=== PATIENT | female | born 1945 | race American Indian/Alaskan Native ===

== ENCOUNTER 2016-12-02 12:29 | Outpatient (CLI) | payer MEDICARE ==
[2016-12-02 13:13] LABS: Bilirubin,Urine NEG (Negative); Blood,Urine NEG (Negative); Ketones,Urine NEG (Negative); Leukocyte Esterase,Urine NEG (Negative); Mucus,Urine FEW /HPF; Nitrite,Urine NEG (Negative); RBC,Urine < 1.0 /HPF (0.0-6.0)
[2016-12-02 13:14] LABS: Alanine Aminotransferase 33 units/L (7-56); Albumin 3.8 g/dL (3.9-5); Albumin/Globulin Ratio 1.1 %; Alkaline Phosphatase 332 units/L (35-129); Anion Gap 16 mmol/L; BUN/Creatinine Ratio 24.44; Bilirubin,Total 1.8 mg/dL (0.1-1.2); Blood Urea Nitrogen 22 mg/dL (7-17); Calcium 8.9 mg/dL (8.4-10.2); Carbon Dioxide 31 mmol/L (22-30); Chloride 99.4 mmol/L (98-107); Glucose 120 mg/dL (65-100); Potassium 3.1 mmol/L (3.6-5.0); Sodium 143 mmol/L (137-145); Total Protein 7.4 g/dL (6.3-8.2)
== END 2016-12-02 12:30 | disposition home or self-care (01) ==
LOC: LAB 12:29
PROVIDERS: ATTEND Internal Medicine
DX: I10 Essential (primary) hypertension (principal); Z79.899 Other long term (current) drug therapy
CPT/HCPCS: 36415; 80053; 81001

== ENCOUNTER 2017-01-18 09:26 | Inpatient (IN) | payer MEDICARE ==
[2017-01-18] MEDS ORDERED: DULCOLAX PR PRN (10:28)
[2017-01-18] MEDS ORDERED: ZOFRAN IV PRN (10:28)
[2017-01-18] MEDS ORDERED: MILK OF MAGNESIA PO PRN (10:28)
--- NOTE | 2017-01-18 10:39 | History and Physical Report ---
History of Present Illness Date of examination: 01/18/17 History of present illness: H&P obtained from the office. Medications and Allergies Allergies Allergy/AdvReac Type Severity Reaction Status Date / Time amlodipine besylate Allergy Rash Verified 07/22/16 08:41 [From [facility]] benazepril Allergy Rash Verified 07/22/16 08:41 tramadol Allergy Rash Verified 07/22/16 08:41 hydrocodone AdvReac Itching Verified 07/22/16 08:41 ibuprofen AdvReac Itching Verified 07/22/16 08:41 Home Medications Medication Instructions Recorded Confirmed Last Taken Type Potassium Chloride [Klor-Con M15] 20 meq PO BID 09/03/13 01/10/17 1 Day Ago History Pravastatin (Nf) [Pravachol] 40 mg PO DAILY 09/03/13 01/10/17 1 Day Ago History Furosemide [Lasix] 40 mg PO BID 11/02/13 01/10/17 1 Day Ago History Ibuprofen [Motrin 800 MG tab] 800 mg PO Q8HR PRN #20 tablet 08/29/15 01/11/17 00:00 Rx 800 Metolazone 5 mg PO 2XW 08/29/15 01/10/17 1 Day Ago History Minoxidil 10 mg PO DAILY 08/29/15 01/10/17 01/09/17 History ProAir HFA Inhaler 2 puff PO Q6HR PRN 08/29/15 01/10/17 01/08/17 History Celecoxib 100 mg PO DAILY 01/10/17 01/10/17 1 Day Ago History Omeprazole 40 mg PO DAILY 01/10/17 01/10/17 1 Day Ago History Amiodarone [Cordarone 200 MG TAB] 400 mg PO BID #60 tablet 01/15/17 Unknown Rx AtorvaSTATin [Lipitor] 10 mg PO QHS #30 tablet 01/15/17 Unknown Rx Famotidine [Pepcid] 20 mg PO BID #60 tablet 01/15/17 Unknown Rx Metoprolol [Lopressor TAB] 50 mg PO BID #60 tablet 01/15/17 Unknown Rx Assessment and Plan Cor Pulmonale mild , normal LVEF on recent echo Paroxysmal atrial tachycardia Paroxysmal atrial fibrillation No anticoagulation secondary to history of bleeding gastric ulcers and melena. Type II diabetes mellitus Systemic hypertension Non-obstructive CAD by [facility] 2011 normal MPI on recent admission Recommendations: Admit for IV diuresis for right sided heart failure and anasarca. Discontinue minoxifil due to tendency to cause edema and fluid retention.
[2017-01-18] MEDS ORDERED: NON-FORMULARY (Proair Hfa Inhaler 2 PUFF) PO PRN (10:43)
[2017-01-18] MEDS ORDERED: NON-FORMULARY (Metolazone 5 MG) PO SCH (10:45)
[2017-01-18] MEDS ORDERED: PROVENTIL IH PRN (12:52)
--- NOTE | 2017-01-18 13:17 | Admit Criteria Form ---
Admission Criteria Documentation: HEART FAILURE: COMMON COMPLICATIONS Clinical Indications for Inpatient Care (Place 'X' for any and all applicable criteria): Ongoing inpatient care may be indicated for heart failure with ANY ONE of the following (1)(2)(3)(4)(5): [ ]I. Ongoing need for care for primary condition requiring frequent therapy adjustments because of changes in cardiac function (eg, drug dosage changes for drugs that are renally metabolized) [ ]II. New-onset heart failure [ ]III. Heart failure with decreased urine output not responsive to attempts to optimize volume status [ ]IV. Acute cardiac ischemia causing or associated with failure [X]V. Complications of heart failure, including ANY ONE of the following: [ ]a) Pericardial effusion [ ]b) Symptomatic pleural effusion [ ]c) O2 saturation <90% or PO2 < 60 mm Hg (8.0 kPa) on room air or require baseline supplemental O2 [ ]d) Tachypnea [ ]e) Dyspnea [ ]f) Syncope [ ]g) Change in mental status [ ]h) Acute renal insufficiency that is severe (reduction of more than 50% in estimated glomerular filtration rate from baseline) or progressive reduction of more than 25% in estimated glomerular filtration rate from baseline, with creatinine continuing to rise) [ ]i) Hemodynamic instability [X]j) Anasarca [ ]k) Clinically significant metabolic abnormalities due to heart failure (eg, new-onset metabolic acidosis) Extended stay beyond goal length of stay for primary condition may be needed until ALL of the following are present(1)(3): [ ]a) Stable and effective diuretic regimen established (or patient on stable dialysis regimen if in chronic renal failure) [ ]b) Breathing comfortably at rest [ ]c) Saturation of arterial oxygen greater than 90% or at acceptable baseline [ ]d) Pulmonary edema absent or improved [ ]e) Hemodynamic stability [ ]f) Volume status acceptable on oral medication [ ]g) Peripheral or sacral edema absent or improved [ ]h) Renal function stable and manageable at a lower level of care [ ]i) Complications (eg, pleural effusion) resolved or manageable at a lower level of care [ ]j) Patient or caregiver has received written discharge instructions or educational material addressing activity level, diet, discharge medications, follow-up appointment, weight monitoring, and what to do if symptoms worsen The original [facility] content created by [employer] has been revised. The portions of the content which have been revised are identified through the use of italic text or in bold, and [facility] has neither reviewed nor approved the modified material.All other unmodified content is copyright [facility]. Please see references footnoted in the original [facility] edition 2016 Admission Criteria Met: Yes
[2017-01-18 14:06] LABS: Basophils % (Auto) 0.7 % (0.0-1.8); Eosinophils % (Auto) 0.8 % (0.0-4.3); Hemoglobin 11.5 gm/dl (10.1-14.3); Mean Corpuscular HGB Conc 32 % (30-34); Mean Corpuscular Hemoglobin 26 pg (28-32); Mean Corpuscular Volume 81 fl (79-97); Platelet Count 174 K/mm3 (140-440); Red Blood Count 4.44 M/mm3 (3.65-5.03); Red Cell Distribution Width 18.2 % (13.2-15.2); White Blood Count 4.7 K/mm3 (4.5-11.0)
[2017-01-18 17:30] LABS: Calcium 9.1 mg/dL (8.4-10.2); Potassium 3.7 mmol/L (3.6-5.0)
[2017-01-18] MEDS: LASIX PO SCH (18:30)
[2017-01-18] MEDS: CORDARONE PO SCH (21:44)
[2017-01-18] MEDS: PEPCID PO SCH (21:44)
[2017-01-18] MEDS: K-DUR PO SCH (21:45)
[2017-01-18] MEDS: LOPRESSOR PO SCH (21:46)
[2017-01-18] MEDS ORDERED: CORDARONE PO SCH (22:00)
[2017-01-18] MEDS ORDERED: POTASSIUM CHLORIDE 20 MEQ PO SCH (22:00)
[2017-01-19] MEDS: LASIX PO SCH (05:28)
[2017-01-19 07:15] LABS: BUN/Creatinine Ratio 23.57; Calcium 8.8 mg/dL (8.4-10.2); Chloride 99.7 mmol/L (98-107); Potassium 3.5 mmol/L (3.6-5.0)
[2017-01-19] MEDS: CORDARONE PO SCH ×2 (10:05→22:05)
[2017-01-19] MEDS: LOPRESSOR PO SCH ×2 (10:05→22:06)
[2017-01-19] MEDS: PEPCID PO SCH ×2 (10:05→22:05)
[2017-01-19] MEDS: K-DUR PO SCH ×2 (10:05→22:05)
[2017-01-19] MEDS: LOVENOX SUB-Q SCH (10:06)
--- NOTE | 2017-01-19 10:32 | Progress Note ---
Assessment and Plan Cor Pulmonale mild , normal LVEF on recent echo Paroxysmal atrial tachycardia Paroxysmal atrial fibrillation No anticoagulation secondary to history of bleeding gastric ulcers and melena. Type II diabetes mellitus Systemic hypertension Non-obstructive CAD by [facility] 2011 normal MPI on recent admission Recommendations: Continue IV diuresis for right sided heart failure and anasarca. Discharge planning in process. Subjective Date of service: 01/19/17 Interval history: Patient reports shortness of breath on exertion. She denies chest pain. Atrial fib on telemetry, rate well controlled. Objective Vital Signs Temp Pulse Pulse Pulse Pulse Pulse Resp 01/19/17 07:30 98.0 F 66 18 01/19/17 04:00 98.2 F 98 H 18 01/19/17 00:34 97.7 F 72 20 01/19/17 00:09 78 01/18/17 21:33 96 H 96 H 18 01/18/17 20:32 98.5 F 72 20 01/18/17 17:04 98.0 F 72 20 01/18/17 12:48 98.7 F 74 20 01/18/17 12:35 86 BP BP Pulse Ox 01/19/17 07:30 102/67 95 01/19/17 04:00 112/72 96 01/19/17 00:34 109/71 94 01/19/17 00:09 01/18/17 21:33 01/18/17 20:32 102/69 96 01/18/17 17:04 114/69 90 01/18/17 12:48 116/82 94 01/18/17 12:35 - Labs and Meds CBC 01/18/17 Range/Units 13:27 WBC 4.7 (4.5-11.0) K/mm3 RBC 4.44 (3.65-5.03) M/mm3 Hgb 11.5 (10.1-14.3) gm/dl Hct 36.0 (30.3-42.9) % Plt Count 174 (140-440) K/mm3 Lymph # 1.0 L (1.2-5.4) K/mm3 [place] # 0.6 (0.0-0.8) K/mm3 Eos # 0.0 (0.0-0.4) K/mm3 Baso # 0.0 (0.0-0.1) K/mm3 Comprehensive Metabolic Panel 01/18/17 01/19/17 Range/Units 13:27 04:58 Sodium 142 143 (137-145) mmol/L Potassium 3.7 3.5 L (3.6-5.0) mmol/L Chloride 101.0 99.7 (98-107) mmol/L Carbon Dioxide 24 27 (22-30) mmol/L BUN 36 H 33 H (7-17) mg/dL Creatinine 1.5 H 1.4 H (0.7-1.2) mg/dL Glucose 114 H 110 H (65-100) mg/dL Calcium 9.1 8.8 (8.4-10.2) mg/dL
[2017-01-19] MEDS: LASIX IV SCH (19:04)
[2017-01-20] MEDS: LASIX IV SCH ×2 (05:45→17:03)
[2017-01-20 06:28] LABS: BUN/Creatinine Ratio 22.66; Calcium 8.7 mg/dL (8.4-10.2); Chloride 99.8 mmol/L (98-107); Potassium 3.2 mmol/L (3.6-5.0)
--- NOTE | 2017-01-20 09:33 | Progress Note ---
Assessment and Plan Cor Pulmonale mild , normal LVEF on recent echo Severe Lymphedema, bilateral LE Paroxysmal atrial tachycardia Paroxysmal atrial fibrillation No anticoagulation secondary to history of bleeding gastric ulcers and melena. Type II diabetes mellitus Systemic hypertension Non-obstructive CAD by [facility] 2011 normal MPI on recent admission Plan: Replace potassium. Daily labs. Continue IV diuretics. Subjective Date of service: 01/20/17 Interval history: Patient reports she is feeling better. Noted hypokalemic on labs this morning. Stable afib on telemetry monitoring. Objective Vital Signs Temp Pulse Pulse Pulse Resp BP BP 01/20/17 07:57 97.8 F 70 16 133/86 01/20/17 05:03 97.7 F 87 18 120/83 01/20/17 00:51 97.7 F 69 20 104/69 01/19/17 23:59 72 01/19/17 20:00 98.1 F 65 19 111/65 01/19/17 16:00 98.3 F 66 18 117/75 01/19/17 11:30 98.1 F 65 18 115/84 Pulse Ox 01/20/17 07:57 94 01/20/17 05:03 97 01/20/17 00:51 97 01/19/17 23:59 01/19/17 20:00 96 01/19/17 16:00 95 01/19/17 11:30 95 - Physical Examination General: No Apparent Distress HEENT: Positive: PERRL Neck: Positive: trachea midline Cardiac: Positive: irregularly irregular - Labs and Meds Comprehensive Metabolic Panel 01/20/17 Range/Units 04:20 Sodium 141 (137-145) mmol/L Potassium 3.2 L (3.6-5.0) mmol/L Chloride 99.8 (98-107) mmol/L Carbon Dioxide 27 (22-30) mmol/L BUN 34 H (7-17) mg/dL Creatinine 1.5 H (0.7-1.2) mg/dL Glucose 122 H (65-100) mg/dL Calcium 8.7 (8.4-10.2) mg/dL
[2017-01-20] MEDS: LOPRESSOR PO SCH ×2 (09:42→21:15)
[2017-01-20] MEDS: CORDARONE PO SCH (09:42)
[2017-01-20] MEDS: K-DUR PO SCH (09:42)
[2017-01-20] MEDS: PEPCID PO SCH ×2 (09:43→21:15)
[2017-01-20] MEDS: LOVENOX SUB-Q SCH (09:43)
[2017-01-20] MEDS ORDERED: K-DUR PO ONE ×2 (13:41→17:00)
[2017-01-20] MEDS: LANOXIN PO SCH (16:50)
[2017-01-21] MEDS: LASIX IV SCH ×2 (06:06→18:23)
[2017-01-21 06:14] LABS: BUN/Creatinine Ratio 21.25; Calcium 8.7 mg/dL (8.4-10.2); Chloride 100.9 mmol/L (98-107); Potassium 3.5 mmol/L (3.6-5.0)
[2017-01-21] MEDS: LOPRESSOR PO SCH (09:31)
[2017-01-21] MEDS: PEPCID PO SCH ×2 (09:31→21:52)
[2017-01-21] MEDS: K-DUR PO SCH (09:32)
[2017-01-21] MEDS: LOVENOX SUB-Q SCH (09:40)
[2017-01-21] MEDS ORDERED: ZAROXOLYN PO SCH (10:00)
--- NOTE | 2017-01-21 12:50 | Progress Note ---
Assessment and Plan Cor Pulmonale mild , normal LVEF on recent echo Severe Lymphedema, bilateral LE Persistent atrial fibrillation No anticoagulation secondary to history of bleeding gastric ulcers and melena. Now pursuing rate control strategy Hypertension: Uncontrolled. Type II diabetes mellitus Systemic hypertension Non-obstructive CAD by [facility] 2011 normal MPI on recent admission Plan: Replace potassium. Change metoprolol to coreg. Continue IV diuretics. Subjective Date of service: 01/21/17 Interval history: No cardiac complaints. Objective Vital Signs Temp Pulse Pulse Pulse Resp BP BP 01/21/17 12:11 98.2 F 65 16 01/21/17 09:31 66 172/90 01/21/17 08:28 98.1 F 66 16 172/90 01/21/17 04:47 98.3 F 65 20 01/21/17 00:00 98.1 F 68 19 01/20/17 23:20 66 01/20/17 20:00 97.8 F 71 19 01/20/17 16:50 80 01/20/17 16:15 97.9 F 64 18 01/20/17 13:20 97.7 F 64 18 134/86 BP Pulse Ox 01/21/17 12:11 156/92 96 01/21/17 09:31 01/21/17 08:28 95 01/21/17 04:47 160/92 93 01/21/17 00:00 133/80 95 01/20/17 23:20 01/20/17 20:00 125/68 91 01/20/17 16:50 01/20/17 16:15 114/71 95 01/20/17 13:20 95 - Physical Examination General: No Apparent Distress HEENT: Positive: PERRL Neck: Positive: trachea midline Cardiac: Positive: irregularly irregular Lungs: Positive: Decreased Breath Sounds Abdomen: Positive: Soft, Active Bowel Sounds Extremities: Present: +4 Edema - Labs and Meds Comprehensive Metabolic Panel 01/21/17 Range/Units 05:00 Sodium 143 (137-145) mmol/L Potassium 3.5 L (3.6-5.0) mmol/L Chloride 100.9 (98-107) mmol/L Carbon Dioxide 28 (22-30) mmol/L BUN 34 H (7-17) mg/dL Creatinine 1.6 H (0.7-1.2) mg/dL Glucose 94 (65-100) mg/dL Calcium 8.7 (8.4-10.2) mg/dL
[2017-01-21] MEDS: LANOXIN PO SCH (18:23)
[2017-01-21] MEDS: COREG PO SCH (21:52)
[2017-01-21] MEDS: TYLENOL PO PRN (21:54)
[2017-01-22] MEDS ORDERED: APRESOLINE IV PRN (00:10)
[2017-01-22] MEDS: LASIX IV SCH ×2 (06:07→17:34)
[2017-01-22 06:50] LABS: BUN/Creatinine Ratio 25.38; Calcium 8.7 mg/dL (8.4-10.2); Chloride 102.4 mmol/L (98-107); Potassium 3.2 mmol/L (3.6-5.0)
--- NOTE | 2017-01-22 10:20 | Progress Note ---
Assessment and Plan Cor Pulmonale mild , normal LVEF on recent echo Severe Lymphedema, bilateral LE Persistent atrial fibrillation No anticoagulation secondary to history of bleeding gastric ulcers and melena. Now pursuing rate control strategy Hypertension: Uncontrolled. Type II diabetes mellitus Systemic hypertension Non-obstructive CAD by [facility] 2011 normal MPI on recent admission Plan: Replace potassium - will increase daily supplementation. Continue IV diuretics. Subjective Date of service: 01/22/17 Interval history: Pt is feeling better - dyspnea is improving. Objective Vital Signs Temp Pulse Pulse Pulse Resp BP BP 01/22/17 08:53 97.5 F L 92 H 18 125/82 01/22/17 04:18 98.2 F 74 20 123/86 01/22/17 03:20 80 01/22/17 01:35 98 H 102/59 01/22/17 00:16 74 193/123 01/21/17 23:59 97.6 F 74 18 193/123 01/21/17 22:54 18 01/21/17 22:00 65 18 01/21/17 21:54 18 01/21/17 21:52 66 177/98 01/21/17 20:01 98.1 F 66 18 177/98 01/21/17 18:23 68 160/99 01/21/17 16:42 97.9 F 67 16 160/99 01/21/17 12:11 98.2 F 65 16 156/92 01/21/17 10:33 16 Pulse Ox 01/22/17 08:53 97 01/22/17 04:18 99 01/22/17 03:20 01/22/17 01:35 01/22/17 00:16 01/21/17 23:59 93 01/21/17 22:54 01/21/17 22:00 92 01/21/17 21:54 01/21/17 21:52 01/21/17 20:01 92 01/21/17 18:23 01/21/17 16:42 97 01/21/17 12:11 96 01/21/17 10:33 - Physical Examination General: No Apparent Distress HEENT: Positive: PERRL Neck: Positive: trachea midline Cardiac: Positive: Reg Rate and Rhythm Lungs: Positive: clear to auscultation Abdomen: Positive: Soft, Active Bowel Sounds Extremities: Present: +4 Edema - Labs and Meds Comprehensive Metabolic Panel 01/22/17 Range/Units 05:51 Sodium 142 (137-145) mmol/L Potassium 3.2 L (3.6-5.0) mmol/L Chloride 102.4 (98-107) mmol/L Carbon Dioxide 25 (22-30) mmol/L BUN 33 H (7-17) mg/dL Creatinine 1.3 H (0.7-1.2) mg/dL Glucose 109 H (65-100) mg/dL Calcium 8.7 (8.4-10.2) mg/dL
[2017-01-22] MEDS: PEPCID PO SCH ×2 (10:51→23:04)
[2017-01-22] MEDS: COREG PO SCH ×2 (10:52→23:04)
[2017-01-22] MEDS: K-DUR PO SCH ×2 (10:53→23:03)
[2017-01-22] MEDS: LOVENOX SUB-Q SCH (10:54)
[2017-01-22] MEDS: LANOXIN PO SCH (17:33)
[2017-01-23] MEDS: LASIX IV SCH (06:22)
[2017-01-23] MEDS: K-DUR PO SCH ×2 (07:33→09:11)
[2017-01-23] MEDS: LOVENOX SUB-Q SCH (09:10)
[2017-01-23] MEDS: PEPCID PO SCH (09:11)
[2017-01-23] MEDS: COREG PO SCH (09:11)
[2017-01-23 09:40] VITALS: BP 163/97
[2017-01-23] MEDS: TYLENOL PO PRN (11:07)
--- NOTE | 2017-01-23 13:23 | Discharge Summary ---
Providers - Providers Date of Admission: 01/18/17 11:47 Date of discharge: 01/23/17 Attending physician: LU BA 01/23/17 08:36 Physical Therapy Evaluation and Treat [CONS] Routine Comment: Reason For Exam: skilled needs for discharge Primary care physician: [employer] Hospitalization Condition: Good Hospital course: 71-year-old woman who has severe lymphedema of both lower extremities, that has resulted in marked hypertrophy of the subcutaneous tissues of both legs and thighs. Her recent echocardiogram shows left ventricular systolic ejection fraction of 45-50%, mild to moderate, concentric left ventricular hypertrophy, aortic valve sclerosis with mild aortic stenosis, mild to moderate mitral regurgitation, dilatation of both right and left atria, moderate enlargement of the right ventricle with moderate right ventricular systolic dysfunction, moderate tricuspid regurgitation and moderate pulmonary hypertension. Patient has been treated with optimal diuretics, but due to underlying severe lymphedema, long-term mobility will likely continue to be compromised. Outpatient lymphedema evaluation and treatment has been scheduled February 10. Patient also advised outpatient physical therapy for bilateral lower extremity strengthening and gait training. Disposition: DISCHARGED TO HOME OR SELFCARE Core Measure Documentation - Palliative Care Palliative Care/ Comfort Measures: Not Applicable - Core Measures Any of the following diagnoses?: heart failure - Heart Failure Discharge Requirements SAM/ARB for LVSD if EF <40%: Not Applicable Beta raúl at discharge: Yes Exam - Constitutional Vitals: Temp Pulse Resp BP Pulse Ox 97.4 F L 68 18 163/97 92 01/23/17 09:28 01/23/17 10:53 01/23/17 09:28 01/23/17 09:28 01/23/17 09:28 General appearance: Present: no acute distress - EENT Eyes: Present: PERRL ENT: clear oral mucosa - Neck Neck: Present: normal ROM - Respiratory Respiratory effort: normal - Cardiovascular Rhythm: irregularly irregular - Musculoskeletal Musculoskeletal: generalized weakness Plan Activity: advance as tolerated Diet: low fat, low cholesterol, low salt Follow up with: LESLEY LANDRY MD [Primary Care Provider] - 7 Days LU BA MD [Staff Physician] - 7 Days Prescriptions: Carvedilol [Coreg] 25 mg PO BID #60 tablet Digoxin [Lanoxin] 0.125 mg PO DAILY@1700 #30 tablet Potassium Chloride [K-Dur] 30 meq PO BID #60 tablet Other Discharge Orders: Physicial Therapy (Amb) Location: Determined By Patient
== END 2017-01-23 15:21 | disposition home health service (06) | DRG 315 ==
LOC: 4A 09:26 → UNDOADMIN 09:26 → 4A 11:47
PROVIDERS: ADMIT Internal Medicine; ATTEND Internal Medicine
DX: I27.2 Other secondary pulmonary hypertension (principal); I47.1 Supraventricular tachycardia; I50.30 Unspecified diastolic (congestive) heart failure; I27.81 Cor pulmonale (chronic); I48.0 Paroxysmal atrial fibrillation; E11.9 Type 2 diabetes mellitus without complications; I25.10 Atherosclerotic heart disease of native coronary artery without angina pectoris; I11.0 Hypertensive heart disease with heart failure; I89.0 Lymphedema, not elsewhere classified; I35.0 Nonrheumatic aortic (valve) stenosis; Z88.8 Allergy status to other drugs, medicaments and biological substances
CPT/HCPCS: 36415; 80048; 82962; 84132; 85025; 93005; 93010; A9270-GY; G8978-GP; G8979-GP; J0360; J1650; J1940

== ENCOUNTER 2017-03-22 07:39 | Day surgery (SDC) | payer MEDICARE ==
[2017-03-22 08:46] LABS: Eosinophils % (Auto) 2.1 % (0.0-4.3); Hematocrit 37.2 % (30.3-42.9); Mean Corpuscular HGB Conc 32 % (30-34); Mean Corpuscular Hemoglobin 26 pg (28-32); Mean Corpuscular Volume 79 fl (79-97); Platelet Count 155 K/mm3 (140-440); Red Blood Count 4.72 M/mm3 (3.65-5.03); Red Cell Distribution Width 18.1 % (13.2-15.2); White Blood Count 5.7 K/mm3 (4.5-11.0)
[2017-03-22 08:56] LABS: INR 1.08 (0.87-1.13)
[2017-03-22] MEDS ORDERED: ECOTRIN PO ONE (09:00)
[2017-03-22] MEDS ORDERED: NACL 0.9% 500 ML 500 ML IV SCH (09:00)
[2017-03-22 09:14] LABS: BUN/Creatinine Ratio 21.53; Calcium 8.9 mg/dL (8.4-10.2); Chloride 89.6 mmol/L (98-107)
[2017-03-22] MEDS ORDERED: K-DUR PO ONE (09:50)
[2017-03-22] MEDS ORDERED: SUBLIMAZE ONE (10:11)
[2017-03-22] MEDS ORDERED: VERSED ONE (10:11)
[2017-03-22] MEDS ORDERED: HEPARIN/NS 5000 UNIT/500ML(CATH LAB) 1,000 ML IR ONE (10:11)
[2017-03-22] MEDS ORDERED: XYLOCAINE 2% INFILTRATI ONE (10:12)
[2017-03-22] MEDS ORDERED: AdenoCARD 6 MG in NACL 0.9% 500 ML 500 ML IV ONE (10:13)
--- NOTE | 2017-03-22 11:46 | Short Stay Summary ---
Short Stay Documentation Date of service: 03/22/17 - History H&P: obtained from office - Allergies and Medications Current Medications: Allergies amlodipine besylate [From [facility]] Allergy (Verified 07/22/16 08:41) Rash benazepril Allergy (Verified 07/22/16 08:41) Rash hydrocodone Allergy (Verified 01/18/17 12:40) Itching ibuprofen Allergy (Verified 01/18/17 12:40) Itching tramadol Allergy (Verified 07/22/16 08:41) Rash Home Medications Medication Instructions Recorded Confirmed Last Taken Type Pravastatin (Nf) [Pravachol] 40 mg PO DAILY 09/03/13 03/22/17 03/21/17 History Metolazone 5 mg PO 2XW 08/29/15 02/22/17 03/20/17 History Carvedilol [Coreg] 25 mg PO BID #60 tablet 01/23/17 02/22/17 02/20/17 Rx Albuterol Sulfate [Ventolin HFA] 2 puff IH Q6H PRN 03/22/17 03/22/17 Unknown History Famotidine [Pepcid] 20 mg PO BID 03/22/17 03/22/17 03/21/17 History Metoprolol [Lopressor TAB] 50 mg PO BID 03/22/17 03/22/17 03/21/17 History Potassium Chloride [K-Dur] 20 meq PO BID 03/22/17 03/22/17 03/21/17 History cloNIDine [Catapres] 0.1 mg PO PRN PRN 03/22/17 03/22/17 03/21/17 History Active Medications Sodium Chloride (Nacl 0.9% 500 Ml) 500 mls @ 50 mls/hr IV DIRECT SHANNAN Stop: 03/22/17 18:59 Last Admin: 03/22/17 09:29 Dose: 50 mls/hr Adenosine 6 mg/ Sodium (Chloride) 502 mls @ 4.5 mls/hr IV ONCE ONE Stop: 03/27/17 01:46 - Physical exam General appearance: no acute distress Integumentary: no rash HEENT: Atraumatic Lungs: Clear to auscultation Breasts: deferred Heart: Regular rate Gastrointestinal: normal Female Genitourinary: deferred Rectal Exam: deferred Extremities: no ischemia Neurological: Normal gait - Brief post op/procedure progress note Date of procedure: 03/22/17 Pre-op diagnosis: Pulmonary hypertension Post-op diagnosis: same Procedure: RHC Anesthesia: MAC Findings: See report Surgeon: BIRGIT MCKINLEY Estimated blood loss: none Pathology: none Condition: stable - Hospital course Hospital course: Uneventful - Disposition Condition at discharge: Good Disposition: DC-01 TO HOME OR SELFCARE Short Stay Discharge Plan Activity: advance as tolerated Weight Bearing Status: Partial Weight Bearing Diet: low salt Special Instructions: restrict fluid intake to (64 ounces daily) Follow up with: NETTIE ALEXANDER MD [Primary Care Provider] - 7 Days Prescriptions: Potassium Chloride [K-Dur] 60 meq PO DAILY #30 tablet
[2017-03-22 13:50] VITALS: BP 172/92
--- NOTE | 2017-03-24 13:34 | Prelim Cardiac Cath Report ---
Preliminary Cath Report - Hemodynamic Findings Right Atrial Pressure: 19 Right Ventricular Pressure (RV): 86 Pulmonary Artery Pressure(PA): 55 Pulmonary Artery Wedge Pressure: 34 Cardiac Output: 3.35 - Other Findings Estimated blood loss: minimal Post Diagnosis: Moderate to severe pulmonary hypertension TPG 21 PVR 6.27 LOWRY Mean PCWP 34 mm Hg Mean PAP 55 mm Hg CO 3.35 l/min CI 1.77 l/min/m2 PA 52% RV 49% RA 50% SVC 52% AO 96% Recommendations: medical therapy (Diuresis and Sildenafil)
--- NOTE | 2017-04-14 15:34 | Cardiac Catherization Report ---
RIGHT HEART CATHETERIZATION INDICATION FOR PROCEDURE: Right-sided heart failure and pulmonary hypertension. PROCEDURE PERFORMED: Right heart catheterization with hemodynamic measurement and oxygen saturation run. DESCRIPTION OF PROCEDURE: After obtaining written consent, the patient was draped using sterile technique. A 2% lidocaine was injected into the right groin. A 7-Kazakh vascular sheath was inserted into the right common femoral vein. A 7-Kazakh Manson-Darshan catheter was used to measure right-sided hemodynamics and perform an oxygen saturation run. No complications occurred during the procedure. Hemostasis was achieved at the end of the procedure using manual pressure. SPECIMEN REMOVED: None. ESTIMATED BLOOD LOSS: Minimal. FINDINGS: HEMODYNAMICS: 1. The mean pulmonary capillary wedge pressure was 34 mmHg. 2. The mean pulmonary artery pressure was 55 mmHg. The pulmonary artery systolic pressure was 92 mmHg with a diastolic pressure of 35 mmHg. 3. The right ventricular systolic pressure was 86 mmHg with right ventricular end-diastolic pressure of 19 mmHg. 4. The mean right arterial pressure was 19 mmHg. 5. The cardiac output is 3.35 L per minute with a cardiac index of 1.77 L per minute per m2. 6. The pulmonary artery saturation was 52%, right ventricular saturation 49%, right atrial saturation 50%, superior vena cava saturation 52%, and aortic saturation 96%. 7. The transpulmonary gradient was measured at 21 mmHg with a pulmonary vascular resistance of 6.27 Alarcon units. IMPRESSION: Evidence of [id number] pulmonary hypertension with a transpulmonary gradient of 21 mmHg. Pulmonary vascular resistance of 6.27 Alarcon units and the mean pulmonary artery pressure of 55 mmHg. RECOMMENDATIONS: Medical therapy with diuresis and sildenafil. JOB# [id number] CARMEN/VIJI
== END 2017-03-22 13:45 | disposition home or self-care (01) ==
LOC: OPU 07:39
PROVIDERS: ATTEND Internal Medicine
DX: I27.2 Other secondary pulmonary hypertension (principal); I11.0 Hypertensive heart disease with heart failure; I50.9 Heart failure, unspecified; E11.9 Type 2 diabetes mellitus without complications; E78.5 Hyperlipidemia, unspecified; E66.3 Overweight; Z68.41 Body mass index [BMI] 40.0-44.9, adult; Z88.8 Allergy status to other drugs, medicaments and biological substances; Z88.6 Allergy status to analgesic agent; Z79.899 Other long term (current) drug therapy; Z90.710 Acquired absence of both cervix and uterus; Z90.49 Acquired absence of other specified parts of digestive tract; Z98.890 Other specified postprocedural states; Z82.49 Family history of ischemic heart disease and other diseases of the circulatory system; Z83.3 Family history of diabetes mellitus; Z80.9 Family history of malignant neoplasm, unspecified
CPT/HCPCS: 36415; 80048; 85025; 85610; 85730; 93005; 93010; 93451; C1894; J0153; J1644; J2250; J3010; J7040

== ENCOUNTER 2017-05-08 10:41 | Outpatient (CLI) | payer MEDICARE ==
[2017-05-08 11:15] LABS: BUN/Creatinine Ratio 31.53; Calcium 8.7 mg/dL (8.4-10.2)
== END 2017-05-08 10:42 | disposition home or self-care (01) ==
LOC: LAB 10:41
PROVIDERS: ATTEND Internal Medicine
DX: I11.0 Hypertensive heart disease with heart failure (principal); I50.32 Chronic diastolic (congestive) heart failure; E11.9 Type 2 diabetes mellitus without complications; J44.9 Chronic obstructive pulmonary disease, unspecified; J45.909 Unspecified asthma, uncomplicated; F17.200 Nicotine dependence, unspecified, uncomplicated; Z79.899 Other long term (current) drug therapy
CPT/HCPCS: 36415; 80048; 83880

== ENCOUNTER 2018-12-07 17:27 | Inpatient (IN) | payer MEDICARE ==
--- NOTE | 2018-12-07 18:10 | Emergency Department Report ---
Blank Doc - Documentation Documentation: pt was sent from [facility] for abnormal ekg to be evaluated pt denies cp, sob labs main ED
[2018-12-07 19:04] LABS: Hematocrit 27.5 % (30.3-42.9); Hemoglobin 8.4 gm/dl (10.1-14.3); Mean Corpuscular HGB Conc 30 % (30-34); Platelet Count 286 K/mm3 (140-440); Red Blood Count 3.94 M/mm3 (3.65-5.03)
[2018-12-07 19:15] LABS: Mean Corpuscular Volume 70 fl (79-97); Red Cell Distribution Width 21.6 % (13.2-15.2)
[2018-12-07 19:24] LABS: Alanine Aminotransferase 14 units/L (7-56); Albumin 4.1 g/dL (3.9-5); BUN/Creatinine Ratio 22; Blood Urea Nitrogen 24 mg/dL (7-17); Calcium 9.4 mg/dL (8.4-10.2); Hemolysis Index 5
[2018-12-07] MEDS: CARDIZEM 100 MG in D5W 80 ML IV SCH (19:30)
[2018-12-07] MEDS ORDERED: NORCO 5/325 PO ONE (19:45)
--- NOTE | 2018-12-07 19:48 | Emergency Department Report ---
HPI - General Chief Complaint: Chest Pain Time Seen by Provider: 12/07/18 18:05 - HPI HPI: Room 2 The patient is a 73-year-old female presenting with a chief complaint of palpitations. The patient says she was in her usual state of health this morning. 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 The patient was subsequently sent to the ED for evaluation. The patient states she's had dyspnea on exertion for one year but has never been diagnosed with atrial fibrillation patient denies chest pain, shortness of breath at rest or nausea/vomiting. Location: Cardiovascular system Duration: [See above] Quality: Palpitations Severity: [See above] Modifying factors: [see above] Context: [see above] Mode of transportation: [not driving] ED Past Medical Hx - Past Medical History Hx Hypertension: Yes Hx Congestive Heart Failure: Yes Hx Diabetes: Yes Hx GERD: Yes Hx Arthritis: Yes Hx Asthma: Yes Hx COPD: Yes Additional medical history: high chol, chronic back pain, edema to legs - Surgical History Hx Cholecystectomy: Yes Hx Appendectomy: Yes Hx Breast Surgery: Yes (RIGHT BREAST (DUCT CLOGGED)) Additional Surgical History: hysterectomy - Family History Family history: no significant - Social History Smoking Status: Never Smoker (dips snuff) Substance Use Type: None - Medications Home Medications: Home Medications Medication Instructions Recorded Confirmed Last Taken Type Albuterol Sulfate [Ventolin HFA] 2 puff IH Q6H PRN 03/22/17 09/14/18 09/13/18 History 2 Famotidine [Pepcid] 20 mg PO BID 03/22/17 09/14/18 09/13/18 History 20mg Metoprolol [Lopressor TAB] 50 mg PO BID 03/22/17 09/14/18 09/13/18 History 50mg Potassium Chloride [K-Dur] 60 meq PO DAILY #30 tablet 03/22/17 09/14/18 09/13/18 Rx 60meq Apixaban [Eliquis] 5 mg PO DAILY 09/14/18 09/14/18 09/11/18 History 5mg AtorvaSTATin [Lipitor] 40 mg PO DAILY 09/14/18 09/14/18 09/13/18 History 40mg Donepezil [Aricept] 5 mg PO DAILY 12/09/14/18 09/13/18 History 5mg Ezetimibe [Zetia] 10 mg PO DAILY 09/14/18 09/14/18 09/13/18 History 10mg Gabapentin [Neurontin] 300 mg PO BID 09/14/18 09/14/18 09/13/18 History 20mg Metolazone 5 mg PO 1XW #30 09/14/18 09/14/18 09/10/18 Rx 5mg Minoxidil [Loniten] 10 mg PO DAILY 09/14/18 09/14/18 09/13/18 History 10mg Sildenafil [Revatio] 20 mg PO Q8HR 09/14/18 09/14/18 09/13/18 History 20mg Torsemide [Demadex] 20 mg PO BID 09/14/18 09/14/18 09/13/18 History 20mg ED Review of Systems ROS: Stated complaint: HEART BEAT FAST/DOC ORDERED Other details as noted in HPI Constitutional: no symptoms reported Eyes: denies: eye pain ENT: denies: throat pain Respiratory: SOB with exertion Cardiovascular: palpitations. denies: chest pain Endocrine: no symptoms reported Gastrointestinal: denies: nausea, vomiting Musculoskeletal: denies: back pain Neurological: denies: headache Physical Exam - Physical Exam Vital Signs: Vital Signs 12/07/18 12/07/18 12/07/18 18:06 18:30 18:45 Temperature 98.4 F Pulse Rate 140 H 135 H Respiratory 16 18 22 Rate Blood Pressure 122/77 136/88 O2 Sat by Pulse 98 100 Oximetry 12/07/18 12/07/18 12/07/18 19:01 19:15 19:21 Temperature Pulse Rate 130 H 129 H Respiratory 15 23 16 Rate Blood Pressure 111/69 136/88 O2 Sat by Pulse 100 100 Oximetry Physical Exam: GENERAL: The patient is well-developed well-nourished female lying on stretcher not appearing to be in acute distress. [] HEENT: Normocephalic. Atraumatic. Extraocular motions are intact. Patient has moist mucous membranes. NECK: Supple. Trachea midline CHEST/LUNGS: Clear to auscultation. There is no respiratory distress noted. HEART/CARDIOVASCULAR: Irregularly irregular. There is tachycardia. There is no gallop rub or murmur. ABDOMEN: Abdomen is soft, nontender. Patient has normal bowel sounds. There is no abdominal distention. SKIN: There is no rash. There is no edema. There is no diaphoresis. NEURO: The patient is awake, alert, and oriented. The patient is cooperative. The patient has normal speech MUSCULOSKELETAL: There is no evidence of acute injury. ED Course Vital Signs 12/07/18 12/07/18 12/07/18 18:06 18:30 18:45 Temperature 98.4 F Pulse Rate 140 H 135 H Respiratory 16 18 22 Rate Blood Pressure 122/77 136/88 O2 Sat by Pulse 98 100 Oximetry 12/07/18 12/07/18 12/07/18 19:01 19:15 19:21 Temperature Pulse Rate 130 H 129 H Respiratory 15 23 16 Rate Blood Pressure 111/69 136/88 O2 Sat by Pulse 100 100 Oximetry ED Medical Decision Making - Lab Data Result diagrams: 12/07/18 18:36 12/07/18 18:36 Laboratory Tests 12/07/18 12/07/18 18:36 18:36 WBC 6.5 RBC 3.94 Hgb 8.4 L Hct 27.5 L MCV 70 L MCH 21 L MCHC 30 RDW 21.6 H Plt Count 286 Sodium 140 Potassium 3.4 L Chloride 104.0 Carbon Dioxide 22 Anion Gap 17 BUN 24 H Creatinine 1.1 Estimated GFR 59 BUN/Creatinine Ratio 22 Glucose 161 H Calcium 9.4 Total Bilirubin 0.60 AST 17 ALT 14 Alkaline Phosphatase 216 H Troponin T < 0.010 Total Protein 8.0 Albumin 4.1 Albumin/Globulin Ratio 1.1 - EKG Data -: EKG Interpreted by Me Rate: tachycardia (130 bpm) - EKG Data When compared to previous EKG there are: changes noted Interpretation: nonspecific ST-T wave arianne (T-wave inversion in leads 1, 2, 3, aVF, V4, V5, V6), other (patient fibrillation with a rapid ventricular re sponse.) - Radiology Data Radiology results: image reviewed (chest x-ray) interpreted by me: Chest [id number]. No pneumothorax - Differential Diagnosis A. fib with RVR, ACS, pericarditis Critical care attestation.: If time is entered above; I have spent that time in minutes in the direct care of this critically ill patient, excluding procedure time. ED Disposition Clinical Impression: Atrial fibrillation with rapid ventricular response, Dyspnea on exertion Disposition: DC-09 OP ADMIT IP TO THIS HOSP Is pt being admited?: Yes Does the pt Need Aspirin: Yes Condition: Fair Referrals: NARCISA GRULLON MD [Primary Care Provider] - 3-5 Days Time of Disposition: 19:54 (hospitalist paged (Dr Mendoza))
[2018-12-07 20:13] LABS: Free T4 (Free Thyroxine) 1.33 ng/dL (0.76-1.46)
[2018-12-07 20:19] LABS: INR 1.24 (0.87-1.13); Partial Thromboplastin Time 31.2 Sec. (24.2-36.6)
[2018-12-07 20:30] LABS: Anisocytosis 1+; Eosinophils % (Manual) 0 % (0.0-4.3); Total Cells Counted 100
[2018-12-07 20:31] LABS: Hypochromasia 2+; Ovalocytes 1+; Poikilocytosis 1+; Tear Drop Cells 1+
[2018-12-07 20:32] LABS: Giant Platelets Few; Platelet Estimate Consistent w Auto
--- NOTE | 2018-12-07 21:19 | XRay Report ---
PROCEDURE: CHEST 1 VIEW TECHNIQUE: Chest radiograph frontal projection. CPT 32944 HISTORY: Shortness of breath COMPARISONS: None . FINDINGS: Heart: Mild to moderate degree cardiomegaly is noted. Mediastinum/Vessels: Normal. Lungs/Pleural space: Normal. Bony thorax: No acute osseous abnormality. A bipolar cardiac device is noted with its leads in place IMPRESSION: Cardiomegaly No acute pulmonary infiltrates. This document is electronically signed by Salvador Dudley MD., December 07 2018 09:17:21 PM ET
[2018-12-07] MEDS ORDERED: ZOFRAN IV PRN (21:31)
[2018-12-07] MEDS ORDERED: K-DUR PO ONE ×2 (21:31→22:02)
[2018-12-07] MEDS ORDERED: D50W (25GM) Syringe IV PRN (21:34)
[2018-12-07] MEDS: HumuLIN R SUB-Q SCH (22:08)
[2018-12-08] MEDS: CARDIZEM 100 MG in D5W 80 ML IV SCH (01:19)
[2018-12-08 02:01] LABS: Creatine Kinase MB 1.1 ng/mL (0.0-4.0)
[2018-12-08] MEDS ORDERED: PROAIR IH PRN (02:52)
[2018-12-08] MEDS ORDERED: NON-FORMULARY (Metolazone 5 MG) PO SCH (03:00)
[2018-12-08] MEDS ORDERED: PROVENTIL IH PRN (03:20)
--- NOTE | 2018-12-08 04:26 | History and Physical Report ---
CHIEF COMPLAINT: Palpitation. HISTORY OF PRESENTING ILLNESS: The patient is a 73-year-old female who said she was having palpitations and was at the site director's place where she was told to go to the Emergency Room for evaluation. The patient also admitted to having dyspnea on exertion and denies history of chest pain; however, the patient also denies history of shortness of breath, nausea, or vomiting. There was also no history of cough or fever and the patient presented for evaluation. PAST MEDICAL HISTORY: Pertinent for hypertension, congestive heart failure, diabetes mellitus, gastroesophageal reflux disease, arthritis, asthma, COPD, hypercholesterolemia, chronic back pain, and edema of the leg. PAST SURGICAL HISTORY: Pertinent for cholecystectomy, right breast surgery, and appendectomy. FAMILY HISTORY: Noncontributory. SOCIAL HISTORY: The patient does not smoke cigarettes, does not drink alcohol, and does not use illicit drugs. MEDICATIONS: The patient is on albuterol inhaler 2 puffs every 6 hours as needed for shortness of breath, Pepcid 20 mg by mouth twice daily, Lopressor 50 mg by mouth twice daily, potassium chloride (K-Dur) 60 mEq by mouth daily, apixaban 5 mg by mouth daily, atorvastatin 40 mg by mouth daily, Donepezil 5 mg by mouth daily, Zetia 10 mg by mouth daily, gabapentin 300 mg by mouth twice daily, metolazone 5 mg by mouth one time, minoxidil 10 mg by mouth daily as well as sildenafil or Revatio 20 mg by mouth every 8 hours. The patient is also on Demadex or torsemide 20 mg by mouth daily. ALLERGIES: THE PATIENT IS ALLERGIC TO AMLODIPINE, BENAZEPRIL, HYDROCODONE, IBUPROFEN, AND TRAMADOL. REVIEW OF SYSTEMS: CONSTITUTIONAL: There is no fever, no chills, no diaphoresis. HEENT: There is no headache or sore throat. CARDIOVASCULAR SYSTEM: There is no chest pain, but has palpitations. RESPIRATORY SYSTEM: There is shortness of breath on exertion and no cough. GASTROINTESTINAL SYSTEM: There is no nausea; no vomiting; no abdominal pain, diarrhea, or constipation. NEUROLOGICAL SYSTEM: There is no numbness, no dizziness, no altered mental status. MUSCULOSKELETAL SYSTEM: There is no joint pain or swelling. DERMATOLOGICAL SYSTEM: There is no skin rash or itching. GENITOURINARY SYSTEM: There is no dysuria, hematuria, or flank pain. Rest of system review is normal. PHYSICAL EXAMINATION: GENERAL: At the time of exam, the patient was found to be alert, oriented x 3, and not in acute distress. VITAL SIGNS: At the initial time of presentation show temperature of 98.4 degrees Fahrenheit, pulse of 140, respirations 16, blood pressure 122/77, O2 sat of 98% on room air. HEENT: Show pupils to be equal, round, reactive to light, and accommodating. Extraocular muscles are intact. NECK: Supple with no JVD or carotid bruit. CARDIOVASCULAR SYSTEM: Show irregularly irregular heart beat with no murmur. RESPIRATORY SYSTEM: Show good air entry on both sides of the lungs with no abnormal breath sounds. GASTROINTESTINAL SYSTEM: Show abdomen to be full, soft, and nontender with no organomegaly or rigidity. NEUROLOGIC: Shows no focal deficit. MUSCULOSKELETAL SYSTEM: Show no joint swelling. DERMATOLOGICAL SYSTEM: Show no skin rash. GENITOURINARY SYSTEM: Showing no costovertebral angle tenderness. PERTINENT LABORATORY AND IMAGING STUDIES: The patient has chest x-ray done that shows no acute cardiopulmonary lesion. The patient's lab results show CBC with normal white count, low hemoglobin of 8.4, low hematocrit of 27.5, and low MCV of 70 with high RDW of 21.6. CBC differential showed elevated monocyte count of 8 and there is elevated basophil count of 2%. The patient's coagulation studies show high PT of 16.4, high INR of 1.24 with chemistry showing low potassium level of 3.4, elevated BUN of 24 with the rest of chemistry being unremarkable. The patient's cardiac enzymes came back normal. Thyroid function tests were normal. The patient's EKG showed atrial fibrillation. DIAGNOSES: 1. Atrial fibrillation with rapid ventricular rate. 2. Anemia. PLAN OF CARE: 1. The patient will be admitted to ICU and will continue Cardizem drip started in the Emergency Room, which will be titrated to keep heart rate below 100. 2. The patient will have Critical Care Consult with Dr. Mejia for ICU admission requiring a Cardizem drip. 3. The patient will have cardiac enzymes involving troponin, total CK, and CK-MB checked q. 6 hours x 2 more levels. 4. The patient will be on consistent carbohydrate, low sodium diet. 5. The patient will be on Accu-Chek before meals and at bedtime followed by low-dose sliding scale using regular insulin coverage. 6. The patient will be on p.r.n. medications like Tylenol 650 mg by mouth every 4 hours for fever and headache and IV Zofran 4 mg every 8 hours for nausea and vomiting. 7. The patient's home medications will be started as shown in the medication reconciliation section and this includes apixaban. JOB# [id number] OCN/NTS MTDD
[2018-12-08 05:31] LABS: Creatine Kinase MB 1.1 ng/mL (0.0-4.0)
[2018-12-08] MEDS: DEMADEX PO SCH ×2 (05:52→18:19)
[2018-12-08] MEDS: REVATIO PO SCH ×3 (05:55→23:11)
[2018-12-08] MEDS: HumuLIN R SUB-Q SCH ×4 (08:48→22:10)
[2018-12-08] MEDS ORDERED: PEPCID PO SCH (10:00)
[2018-12-08] MEDS ORDERED: NON-FORMULARY (Torsemide [Demadex] 20 MG) PO SCH (10:00)
[2018-12-08] MEDS: ARICEPT PO SCH (10:08)
[2018-12-08] MEDS: K-DUR PO SCH (10:08)
[2018-12-08] MEDS: PEPCID PO SCH ×2 (10:08→22:11)
[2018-12-08] MEDS: ZETIA PO SCH (10:08)
[2018-12-08] MEDS: NEURONTIN PO SCH ×2 (10:09→22:11)
[2018-12-08] MEDS: ELIQUIS PO SCH (10:09)
[2018-12-08] MEDS: LOPRESSOR PO SCH ×2 (10:14→22:11)
[2018-12-08] MEDS: LONITEN PO SCH (10:14)
--- NOTE | 2018-12-08 12:10 | Consultation ---
History of Present Illness - Reason for Consult Consult date: 12/08/18 Afib with RVR Requesting physician: KARLENE LEON - History of Present Illness 73 y/o female with known CHF, Moderate pulmonary hypertension, pacemaker and on eliquis BID admitted with afib with RVR. Followed by Dr. Handy of [facility] heart given her degree of pulmonary hypertension. Per patient she has never been diagnosed with afib before. Rate is now controlled in the 80's with pacer spikes seen. Dilt drip is off, however, night time physician did not consult primary cardiology group and I think they have already left the hospital. patient awake and alert with no complaints. Past History Past Medical History: heart failure, other (pulmonary hypertension) Past Surgical History: Other (pacer placement) Social history: no significant social history Medications and Allergies Allergies Allergy/AdvReac Type Severity Reaction Status Date / Time amlodipine besylate Allergy Rash Verified 12/07/18 18:06 [From [facility]] benazepril Allergy Rash Verified 12/07/18 18:06 hydrocodone Allergy Itching Verified 12/07/18 18:06 ibuprofen Allergy Itching Verified 12/07/18 18:06 tramadol Allergy Rash Verified 12/07/18 18:06 Home Medications Medication Instructions Recorded Confirmed Last Taken Type Albuterol Sulfate [Ventolin HFA] 2 puff IH Q6H PRN 03/22/17 09/14/18 09/13/18 History 2 Famotidine [Pepcid] 20 mg PO BID 03/22/17 09/14/18 09/13/18 History 20mg Metoprolol [Lopressor TAB] 50 mg PO BID 03/22/17 09/14/18 09/13/18 History 50mg Potassium Chloride [K-Dur] 60 meq PO DAILY #30 tablet 03/22/17 09/14/18 09/13/18 Rx 60meq Apixaban [Eliquis] 5 mg PO DAILY 09/14/18 09/14/18 09/11/18 History 5mg AtorvaSTATin [Lipitor] 40 mg PO DAILY 09/14/18 09/14/18 09/13/18 History 40mg Donepezil [Aricept] 5 mg PO DAILY 09/14/18 09/14/18 09/13/18 History 5mg Ezetimibe [Zetia] 10 mg PO DAILY 09/14/18 09/14/18 09/13/18 History 10mg Gabapentin [Neurontin] 300 mg PO BID 09/14/18 09/14/18 09/13/18 History 20mg Metolazone 5 mg PO 1XW #30 09/14/18 09/14/18 09/10/18 Rx 5mg Minoxidil [Loniten] 10 mg PO DAILY 09/14/18 09/14/18 09/13/18 History 10mg Sildenafil [Revatio] 20 mg PO Q8HR 09/14/18 09/14/18 09/13/18 History 20mg Torsemide [Demadex] 20 mg PO BID 09/14/18 09/14/18 09/13/18 History 20mg Active Meds: Active Medications Acetaminophen (Tylenol) 650 mg PO Q4H PRN PRN Reason: Fever >101 Albuterol (Proventil) 2.5 mg IH Q4HRT PRN PRN Reason: Shortness Of Breath Apixaban (Eliquis) 5 mg PO DAILY [facility]; Protocol Last Admin: 12/08/18 10:09 Dose: 5 mg Documented by: Atorvastatin Calcium (Lipitor) 40 mg PO DAILY [facility] Last Admin: 12/08/18 10:09 Dose: 40 mg Documented by: Dextrose (D50w (25gm) Syringe) 50 ml IV PRN PRN PRN Reason: Hypoglycemia Diltiazem HCl (Cardizem) 30 mg PO Q6HR [facility] Donepezil HCl (Aricept) 5 mg PO DAILY [facility] Last Admin: 12/08/18 10:08 Dose: 5 mg Documented by: Ezetimibe (Zetia) 10 mg PO DAILY [facility] Last Admin: 12/08/18 10:08 Dose: 10 mg Documented by: Famotidine (Pepcid) 10 mg PO BID [facility] Last Admin: 12/08/18 10:08 Dose: 10 mg Documented by: Gabapentin (Neurontin) 300 mg PO BID [facility] Last Admin: 12/08/18 10:09 Dose: 300 mg Documented by: Insulin Human Regular (Humulin R) 0 units SUB-Q AC [facility]; Protocol Last Admin: 12/08/18 12:01 Dose: Not Given Documented by: Insulin Human Regular (Humulin R) [facility] Last Admin: 03/15/19 22:08 Dose: Not Given Documented by: Metolazone (Zaroxolyn) 5 mg PO [facility] Metoprolol Tartrate (Lopressor) 50 mg PO BID [facility] Last Admin: 12/08/18 10:14 Dose: 50 mg Documented by: Minoxidil (Loniten) 10 mg PO DAILY [facility] Last Admin: 12/08/18 10:14 Dose: 10 mg Documented by: Ondansetron HCl (Zofran) 4 mg IV Q8H PRN PRN Reason: Nausea And Vomiting Potassium Chloride (K-Dur) 60 meq PO DAILY [facility] Last Admin: 12/08/18 10:08 Dose: 60 meq Documented by: Sildenafil Citrate (Revatio) 20 mg PO Q8HR [facility] Last Admin: 12/08/18 05:55 Dose: 20 mg Documented by: Torsemide (Demadex) 20 mg PO BID@0600,1800 [facility] Last Admin: 12/08/18 05:52 Dose: 20 mg Documented by: Review of Systems All systems: negative Exam - Constitutional Vitals: Temp Pulse Resp BP Pulse Ox 98.8 F 80 24 101/51 95 12/08/18 03:34 12/08/18 10:14 12/08/18 07:30 12/08/18 10:14 12/08/18 07:30 General appearance: Present: no acute distress, well-nourished - EENT Eyes: Present: PERRL, EOM intact ENT: hearing intact, clear oral mucosa - Neck Neck: Present: supple, normal ROM - Respiratory Respiratory effort: normal Respiratory: bilateral: CTA - Cardiovascular Rhythm: irregularly irregular - Extremities Extremities: no ischemia, pulses intact - Abdominal General gastrointestinal: Present: soft, non-tender Female genitourinary: Present: deferred - Rectal Rectal Exam: deferred - Integumentary Integumentary: Present: clear, warm, dry - Musculoskeletal Musculoskeletal: strength equal bilaterally - Psychiatric Psychiatric: appropriate mood/affect - Neurologic Neurologic: CNII-XII intact Results - Labs CBC & Chem 7: 12/07/18 18:36 12/07/18 18:36 Labs: Abnormal lab results 12/07/18 12/07/18 12/07/18 Range/Units 18:36 18:36 19:25 Hgb 8.4 L (10.1-14.3) gm/dl Hct 27.5 L (30.3-42.9) % MCV 70 L (79-97) fl MCH 21 L (28-32) pg RDW 21.6 H (13.2-15.2) % Monocytes % (Manual) 8.0 H (0.0-7.3) % Basophils % (Manual) 2.0 H (0.0-1.8) % PT 16.4 H (12.2-14.9) Sec. INR 1.24 H (0.87-1.13) Potassium 3.4 L (3.6-5.0) mmol/L BUN 24 H (7-17) mg/dL Glucose 161 H (65-100) mg/dL POC Glucose (70-105) Alkaline Phosphatase 216 H (35-129) units/L 12/08/18 12/08/18 Range/Units 07:59 11:28 Hgb (10.1-14.3) gm/dl Hct (30.3-42.9) % MCV (79-97) fl MCH (28-32) pg RDW (13.2-15.2) % Monocytes % (Manual) (0.0-7.3) % Basophils % (Manual) (0.0-1.8) % PT (12.2-14.9) Sec. INR (0.87-1.13) Potassium (3.6-5.0) mmol/L BUN (7-17) mg/dL Glucose (65-100) mg/dL POC Glucose 123 H 145 H (70-105) Alkaline Phosphatase (35-129) units/L - Imaging and Cardiology Chest x-ray: image reviewed (cardiomegaly with some mild pulmonary edema) Assessment and Plan 73 y/o female with known heart disease, pulmonary hypertension admitted with Afib with RVR 1. patients rate controlled with dilt but has been off for about 6 hours now. Takes Metoprolol 50 BID and missed last nights dose. Will go ahead and order PO dilt 30 q6 but will hold this first dose as she did get her BB this am. She may not need the dilt. 2. Suggest consulting her primary cardiology team for further management on floor. 3. STable for transfer out of unit
[2018-12-08] MEDS ORDERED: CARDIZEM PO SCH (13:00)
--- NOTE | 2018-12-08 13:04 | Progress Note ---
Assessment and Plan Assessment and plan: Patient is a 73 yo woman with a history of hypertension, CHF, Moderate pulmonary hypertension on Sidenfil, pacemaker, DM type 2, Asthma, Arthritis, dyslipidemia, Dips snuff, GERD, COPD and p.AFib on Eliquis who admitted to ICU for AFib with RVR, now controlled off Cardizem drip -Afib with rvr: Cardiology following,on Eliquis, -Moderate pulmonary hypertension: on sidenfil, Pulmonary is following Transfer to [facility] History Interval history: Patient was seen and examined. Follow-up on current diagnosis of Afib. Overnight uneventful. Patient denies any chest pain, shortness breath, nausea/vomiting or severe headaches. Imaging, nursing note, chart, labs and old chart reviewed. Discussed with patient. Hospitalist Physical - Physical exam Narrative exam: Gen: WDWN, NAD, Awake, Alert, Orientated HEENT: NCAT, EOMI, PERRL, OP Clear Neck: supple, no adenopathy, no thyromegaly, no JVD CVS/Heart: irregular irregular normal S1S2, pulses present bilaterally Chest/Lungs: CTA B, Symmetrical chest expansion, good air entry bilaterally GI/Abdomen: soft, NTND, good bowel sounds, no guarding or rebound /Bladder: no suprapubic tenderness, no CVA or paraspinal tenderness Extermity/Skin: leg edema bilateral, no obvious rash MSK: FROM x 4 Neuro: CN 2-12 grossly intact, no new focal deficits Psych: calm - Constitutional Vitals: Temp Pulse Resp BP Pulse Ox 98.8 F 84 23 103/64 91 12/08/18 03:34 12/08/18 12:15 12/08/18 12:15 12/08/18 12:15 12/08/18 12:15 General appearance: Present: no acute distress, well-nourished Results - Labs CBC & Chem 7: 12/07/18 18:36 12/07/18 18:36 Labs: Laboratory Last Values WBC 6.5 K/mm3 (4.5-11.0) 12/07/18 18:36 RBC 3.94 M/mm3 (3.65-5.03) 12/07/18 18:36 Hgb 8.4 gm/dl (10.1-14.3) L 12/07/18 18:36 Hct 27.5 % (30.3-42.9) L 12/07/18 18:36 MCV 70 fl (79-97) L 12/07/18 18:36 MCH 21 pg (28-32) L 12/07/18 18:36 MCHC 30 % (30-34) 12/07/18 18:36 RDW 21.6 % (13.2-15.2) H 12/07/18 18:36 Plt Count 286 K/mm3 (140-440) 12/07/18 18:36 Add Manual Diff Complete 12/07/18 18:36 Total Counted 100 12/07/18 18:36 Seg Neuts % (Manual) 69.0 % (40.0-70.0) 12/07/18 18:36 Band Neutrophils % 0 % 12/07/18 18:36 Lymphocytes % (Manual) 20.0 % (13.4-35.0) 12/07/18 18:36 Reactive Lymphs % (Man) 1.0 % 12/07/18 18:36 Monocytes % (Manual) 8.0 % (0.0-7.3) H 12/07/18 18:36 Eosinophils % (Manual) 0 % (0.0-4.3) 12/07/18 18:36 Basophils % (Manual) 2.0 % (0.0-1.8) H 12/07/18 18:36 Metamyelocytes % 0 % 12/07/18 18:36 Myelocytes % 0 % 12/07/18 18:36 Promyelocytes % 0 % 12/07/18 18:36 Blast Cells % 0 % 12/07/18 18:36 Nucleated RBC % Not Reportable 12/07/18 18:36 Seg Neutrophils # Man 4.5 K/mm3 (1.8-7.7) 12/07/18 18:36 Band Neutrophils # 0.0 K/mm3 12/07/18 18:36 Lymphocytes # (Manual) 1.3 K/mm3 (1.2-5.4) 12/07/18 18:36 Abs React Lymphs (Man) 0.1 K/mm3 12/07/18 18:36 Monocytes # (Manual) 0.5 K/mm3 (0.0-0.8) 12/07/18 18:36 Eosinophils # (Manual) 0.0 K/mm3 (0.0-0.4) 12/07/18 18:36 Basophils # (Manual) 0.1 K/mm3 (0.0-0.1) 12/07/18 18:36 Metamyelocytes # 0.0 K/mm3 12/07/18 18:36 Myelocytes # 0.0 K/mm3 12/07/18 18:36 Promyelocytes # 0.0 K/mm3 12/07/18 18:36 Blast Cells # 0.0 K/mm3 12/07/18 18:36 WBC Morphology Not Reportable 12/07/18 18:36 Hypersegmented Neuts Not Reportable 12/07/18 18:36 Hyposegmented Neuts Not Reportable 12/07/18 18:36 Hypogranular Neuts Not Reportable 12/07/18 18:36 Smudge Cells Not Reportable 12/07/18 18:36 Toxic Granulation Not Reportable 12/07/18 18:36 Toxic Vacuolation Not Reportable 12/07/18 18:36 Dohle Bodies Not Reportable 12/07/18 18:36 Pelger-Huet Anomaly Not Reportable 12/07/18 18:36 Joe Rods Not Reportable 12/07/18 18:36 Platelet Estimate Consistent w auto 12/07/18 18:36 Clumped Platelets Not Reportable 12/07/18 18:36 Plt Clumps, EDTA Not Reportable 12/07/18 18:36 Large Platelets Not Reportable 12/07/18 18:36 Giant Platelets Few 12/07/18 18:36 Platelet Satelliting Not Reportable 12/07/18 18:36 Plt Morphology Comment Not Reportable 12/07/18 18:36 RBC Morphology Not Reportable 12/07/18 18:36 Dimorphic RBCs Not Reportable 12/07/18 18:36 Polychromasia Few 12/07/18 18:36 Hypochromasia 2+ 12/07/18 18:36 Poikilocytosis 1+ 12/07/18 18:36 Anisocytosis 1+ 12/07/18 18:36 Microcytosis 3+ 12/07/18 18:36 Macrocytosis Not Reportable 12/07/18 18:36 Spherocytes Not Reportable 12/07/18 18:36 Pappenheimer Bodies Not Reportable 12/07/18 18:36 Sickle Cells Not Reportable 12/07/18 18:36 Target Cells Not Reportable 12/07/18 18:36 Tear Drop Cells 1+ 12/07/18 18:36 Ovalocytes 1+ 12/07/18 18:36 Helmet Cells Not Reportable 12/07/18 18:36 [place] Bodies Not Reportable 12/07/18 18:36 Hessel Rings Not Reportable 12/07/18 18:36 [place] Cells Not Reportable 12/07/18 18:36 Bite Cells Not Reportable 12/07/18 18:36 Crenated Cell Not Reportable 12/07/18 18:36 Elliptocytes Not Reportable 12/07/18 18:36 Acanthocytes (Spur) Not Reportable 12/07/18 18:36 Rouleaux Not Reportable 12/07/18 18:36 Hemoglobin C Crystals Not Reportable 12/07/18 18:36 Schistocytes Not Reportable 12/07/18 18:36 Malaria parasites Not Reportable 12/07/18 18:36 Louie Bodies Not Reportable 12/07/18 18:36 Hem Pathologist Commnt No 12/07/18 18:36 PT 16.4 Sec. (12.2-14.9) H 12/07/18 19:25 INR 1.24 (0.87-1.13) H 12/07/18 19:25 APTT 31.2 Sec. (24.2-36.6) 12/07/18 19:25 Sodium 140 mmol/L (137-145) 12/07/18 18:36 Potassium 3.4 mmol/L (3.6-5.0) L 12/07/18 18:36 Chloride 104.0 mmol/L (98-107) 12/07/18 18:36 Carbon Dioxide 22 mmol/L (22-30) 12/07/18 18:36 Anion Gap 17 mmol/L 12/07/18 18:36 BUN 24 mg/dL (7-17) H 12/07/18 18:36 Creatinine 1.1 mg/dL (0.7-1.2) 12/07/18 18:36 Estimated GFR 59 ml/min 12/07/18 18:36 BUN/Creatinine Ratio 22 % 12/07/18 18:36 Glucose 161 mg/dL (65-100) H 12/07/18 18:36 POC Glucose 145 (70-105) H 12/08/18 11:28 Calcium 9.4 mg/dL (8.4-10.2) 12/07/18 18:36 Magnesium 2.00 mg/dL (1.7-2.3) 12/07/18 19:25 Total Bilirubin 0.60 mg/dL (0.1-1.2) 12/07/18 18:36 AST 17 units/L (5-40) 12/07/18 18:36 ALT 14 units/L (7-56) 12/07/18 18:36 Alkaline Phosphatase 216 units/L (35-129) H 12/07/18 18:36 Total Creatine Kinase 77 units/L (30-135) 12/08/18 04:30 CK-MB (CK-2) 1.1 ng/mL (0.0-4.0) 12/08/18 04:30 CK-MB (CK-2) Rel Index 1.4 (0-4) 12/08/18 04:30 Troponin T < 0.010 ng/mL (0.00-0.029) 12/08/18 04:30 Total Protein 8.0 g/dL (6.3-8.2) 12/07/18 18:36 Albumin 4.1 g/dL (3.9-5) 12/07/18 18:36 Albumin/Globulin Ratio 1.1 % 12/07/18 18:36 TSH 1.470 mlU/mL (0.270-4.200) 12/07/18 19:25 Free T4 1.33 ng/dL (0.76-1.46) 12/07/18 19:25
[2018-12-08] MEDS ORDERED: CARDIZEM PO PRN (13:12)
[2018-12-08] MEDS ORDERED: NORCO 10/325 PO PRN (14:29)
[2018-12-09] MEDS: REVATIO PO SCH ×3 (05:37→21:09)
[2018-12-09] MEDS: DEMADEX PO SCH ×2 (05:37→18:31)
[2018-12-09] MEDS: HumuLIN R SUB-Q SCH ×4 (10:46→22:47)
--- NOTE | 2018-12-09 12:07 | Consultation ---
History of Present Illness Consult date: 12/09/18 Consult reason: atrial fibrillation History of present illness: The patient is a 73-year-old woman with a history of COPD, chronic pulmonary hypertension, and paroxysmal atrial fibrillation. She is on chronic oral anticoagulation with Eliquis. My review of her serial EKGs in the hospital records shows that in February 2017 she was in atrial fibrillation, but most recently in August 2018, she was in a stable sinus rhythm. Yesterday, during a routine office visit with her bellows filler, an ECG was done and that showed rapid atrial fibrillation. As a consequence, she was referred to be admitted to the hospital for further management. The patient denies chest pain, denied unusual shortness of breath, denied palpitations, edema or syncope. Currently, she is comfortable in her room on the telemetry floor despite the persistence of the rapid ventricular rate EKG is atrial fibrillation with rapid ventricular rate, with nonspecific lateral ST segment abnormality. Past History Past Medical History: atrial fib, other (pulmonary hypertension) Past Surgical History: Other (pacer placement) Social history: no significant social history Medications and Allergies Allergies Allergy/AdvReac Type Severity Reaction Status Date / Time amlodipine besylate Allergy Rash Verified 12/07/18 18:06 [From [facility]] benazepril Allergy Rash Verified 12/07/18 18:06 hydrocodone Allergy Itching Verified 12/07/18 18:06 ibuprofen Allergy Itching Verified 12/07/18 18:06 tramadol Allergy Rash Verified 12/07/18 18:06 Home Medications Medication Instructions Recorded Confirmed Last Taken Type Albuterol Sulfate [Ventolin HFA] 2 puff IH Q6H PRN 03/22/17 12/08/18 09/13/18 History 2 Famotidine [Pepcid] 20 mg PO BID 03/22/17 12/08/18 09/13/18 History 20mg Metoprolol [Lopressor TAB] 50 mg PO BID 03/22/17 12/08/18 09/13/18 History 50mg Potassium Chloride [K-Dur] 60 meq PO DAILY #30 tablet 03/22/17 12/08/18 09/13/18 Rx 60meq Apixaban [Eliquis] 5 mg PO DAILY 09/14/18 12/08/18 09/11/18 History 5mg AtorvaSTATin [Lipitor] 40 mg PO DAILY 12/12/08/18 09/13/18 History 40mg Donepezil [Aricept] 5 mg PO DAILY 09/14/18 12/08/18 09/13/18 History 5mg Ezetimibe [Zetia] 10 mg PO DAILY 09/14/18 12/08/18 09/13/18 History 10mg Gabapentin [Neurontin] 300 mg PO BID 09/14/18 12/08/18 09/13/18 History 20mg Metolazone 5 mg PO 1XW #30 09/14/18 12/08/18 09/10/18 Rx 5mg Minoxidil [Loniten] 10 mg PO DAILY 09/14/18 12/08/18 09/13/18 History 10mg Sildenafil [Revatio] 20 mg PO Q8HR 09/14/18 12/08/18 09/13/18 History 20mg Torsemide [Demadex] 20 mg PO BID 09/14/18 12/08/18 09/13/18 History 20mg Active Meds: Active Medications Acetaminophen (Tylenol) 650 mg PO Q4H PRN PRN Reason: Fever >101 Acetaminophen/Hydrocodone Bitart ([place] 10/325) 1 each PO Q4H PRN PRN Reason: Pain , Severe (7-10) Last Admin: 12/08/18 14:56 Dose: 1 each Documented by: Albuterol (Proventil) 2.5 mg IH Q4HRT PRN PRN Reason: Shortness Of Breath Apixaban (Eliquis) 5 mg PO DAILY [facility]; Protocol Last Admin: 12/08/18 10:09 Dose: 5 mg Documented by: Atorvastatin Calcium (Lipitor) 40 mg PO DAILY [facility] Last Admin: 12/08/18 10:09 Dose: 40 mg Documented by: Dextrose (D50w (25gm) Syringe) 50 ml IV PRN PRN PRN Reason: Hypoglycemia Diltiazem HCl (Cardizem) 30 mg PO Q6HR PRN PRN Reason: Blood Pressure Donepezil HCl (Aricept) 5 mg PO DAILY [facility] Last Admin: 12/08/18 10:08 Dose: 5 mg Documented by: Ezetimibe (Zetia) 10 mg PO DAILY [facility] Last Admin: 12/08/18 10:08 Dose: 10 mg Documented by: Famotidine (Pepcid) 10 mg PO BID [facility] Last Admin: 12/08/18 22:11 Dose: 10 mg Documented by: Gabapentin (Neurontin) 300 mg PO BID [facility] Last Admin: 12/08/18 22:11 Dose: 300 mg Documented by: Insulin Human Regular (Humulin R) 0 units SUB-Q AC [facility]; Protocol Last Admin: 12/09/18 10:46 Dose: Not Given Documented by: Insulin Human Regular (Humulin R) 0 units SUB-Q QHS [facility]; Protocol Last Admin: 12/08/18 22:10 Dose: Not Given Documented by: Metolazone (Zaroxolyn) 5 mg PO Mo [facility] Metoprolol Tartrate (Lopressor) 50 mg PO BID [facility] Last Admin: 12/08/18 22:11 Dose: Not Given Documented by: Minoxidil (Loniten) 10 mg PO DAILY [facility] Last Admin: 12/08/18 10:14 Dose: 10 mg Documented by: Ondansetron HCl (Zofran) 4 mg IV Q8H PRN PRN Reason: Nausea And Vomiting Potassium Chloride (K-Dur) 60 meq PO DAILY [facility] Last Admin: 12/08/18 10:08 Dose: 60 meq Documented by: Sildenafil Citrate (Revatio) 20 mg PO Q8HR [facility] Last Admin: 12/09/18 05:37 Dose: 20 mg Documented by: Torsemide (Demadex) 20 mg PO BID@0600,1800 [facility] Last Admin: 12/09/18 05:37 Dose: 20 mg Documented by: Review of Systems Cardiovascular: rapid/irregular heart beat, shortness of breath, no chest pain, no orthopnea, no palpitations, no edema, no syncope, no lightheadedness Physical Examination Vital Signs Temp Pulse Resp BP Pulse Ox 98.4 F 140 H 16 122/77 98 12/07/18 18:06 12/07/18 18:06 12/07/18 18:06 12/07/18 18:06 12/07/18 18:06 General appearance: no acute distress HEENT: Positive: PERRL Neck: Positive: neck supple Cardiac: Positive: irregularly irregular Lungs: Positive: Decreased Breath Sounds Neuro: Positive: Grossly Intact Abdomen: Positive: Soft Female genitourinary: deferred Skin: Positive: Clear Extremities: Absent: edema Results 12/07/18 18:36 12/07/18 18:36 EKG interpretations - Telemetry EKG Rhythm: Atrial Fibrillation Assessment and Plan - Patient Problems (1) Atrial fibrillation with rapid ventricular response Current Visit: Yes Status: Acute Plan to address problem: We will optimize rate control of atrial fibrillation, continue oral anticoagulation. If atrial fibrillation persists despite optimal medical therapy, she may need a BLANCA guided cardioversion.
[2018-12-09] MEDS: K-DUR PO SCH (12:34)
[2018-12-09] MEDS: PEPCID PO SCH ×2 (12:34→21:09)
[2018-12-09] MEDS: ARICEPT PO SCH (12:34)
[2018-12-09] MEDS: ELIQUIS PO SCH (12:34)
[2018-12-09] MEDS: ZETIA PO SCH (12:34)
[2018-12-09] MEDS: LOPRESSOR PO SCH ×2 (12:35→21:10)
[2018-12-09] MEDS: LONITEN PO SCH (12:56)
[2018-12-09] MEDS: NEURONTIN PO SCH ×2 (13:02→21:09)
[2018-12-09] MEDS: LANOXIN IV SCH ×2 (13:02→21:09)
[2018-12-09] MEDS ORDERED: CARDIZEM PO PRN (14:00)
--- NOTE | 2018-12-09 15:34 | Progress Note ---
Assessment and Plan Assessment and plan: Patient is a 73 yo woman with a history of hypertension, CHF, Moderate pulmonary hypertension on Sidenfil, pacemaker, DM type 2, Asthma, Arthritis, dyslipidemia, Dips snuff, GERD, COPD and p.AFib on Eliquis who admitted to ICU for AFib with RVR, now controlled off Cardizem drip -Afib with rvr: Cardiology following,on Eliquis, -Moderate pulmonary hypertension: on Sidenfil, Pulmonary is following -Hypokalemia: repeat bmp -Type 2 DM: SSI, accuchecks, ada -DVT/GI prophy History Interval history: Patient was seen and examined. Follow-up on current diagnosis of Afib. Overnight uneventful. Patient denies any chest pain, shortness breath, nausea/vomiting or severe headaches. Imaging, nursing note, chart, labs and old chart reviewed. D iscussed with patient. Hospitalist Physical - Physical exam Narrative exam: Gen: WDWN, NAD, Awake, Alert, Orientated HEENT: NCAT, EOMI, PERRL, OP Clear Neck: supple, no adenopathy, no thyromegaly, no JVD CVS/Heart: irregular irregular normal S1S2, pulses present bilaterally Chest/Lungs: CTA B, Symmetrical chest expansion, good air entry bilaterally GI/Abdomen: soft, NTND, good bowel sounds, no guarding or rebound /Bladder: no suprapubic tenderness, no CVA or paraspinal tenderness Extermity/Skin: leg edema bilateral, no obvious rash MSK: FROM x 4 Neuro: CN 2-12 grossly intact, no new focal deficits Psych: calm - Constitutional Vitals: Temp Pulse Resp BP Pulse Ox 99.2 F 125 H 16 96/62 95 12/09/18 11:31 12/09/18 13:02 12/09/18 11:31 12/09/18 11:31 12/09/18 11:31 General appearance: Present: no acute distress, well-nourished Results - Labs CBC & Chem 7: 12/07/18 18:36 12/07/18 18:36 Labs: Laboratory Last Values WBC 6.5 K/mm3 (4.5-11.0) 12/07/18 18:36 RBC 3.94 M/mm3 (3.65-5.03) 12/07/18 18:36 Hgb 8.4 gm/dl (10.1-14.3) L 12/07/18 18:36 Hct 27.5 % (30.3-42.9) L 12/07/18 18:36 MCV 70 fl (79-97) L 12/07/18 18:36 MCH 21 pg (28-32) L 12/07/18 18:36 MCHC 30 % (30-34) 12/07/18 18:36 RDW 21.6 % (13.2-15.2) H 12/07/18 18:36 Plt Count 286 K/mm3 (140-440) 12/07/18 18:36 Add Manual Diff Complete 12/07/18 18:36 Total Counted 100 12/07/18 18:36 Seg Neuts % (Manual) 69.0 % (40.0-70.0) 12/07/18 18:36 Band Neutrophils % 0 % 12/07/18 18:36 Lymphocytes % (Manual) 20.0 % (13.4-35.0) 12/07/18 18:36 Reactive Lymphs % (Man) 1.0 % 12/07/18 18:36 Monocytes % (Manual) 8.0 % (0.0-7.3) H 12/07/18 18:36 Eosinophils % (Manual) 0 % (0.0-4.3) 12/07/18 18:36 Basophils % (Manual) 2.0 % (0.0-1.8) H 12/07/18 18:36 Metamyelocytes % 0 % 12/07/18 18:36 Myelocytes % 0 % 12/07/18 18:36 Promyelocytes % 0 % 12/07/18 18:36 Blast Cells % 0 % 12/07/18 18:36 Nucleated RBC % Not Reportable 12/07/18 18:36 Seg Neutrophils # Man 4.5 K/mm3 (1.8-7.7) 12/07/18 18:36 Band Neutrophils # 0.0 K/mm3 12/07/18 18:36 Lymphocytes # (Manual) 1.3 K/mm3 (1.2-5.4) 12/07/18 18:36 Abs React Lymphs (Man) 0.1 K/mm3 12/07/18 18:36 Monocytes # (Manual) 0.5 K/mm3 (0.0-0.8) 12/07/18 18:36 Eosinophils # (Manual) 0.0 K/mm3 (0.0-0.4) 12/07/18 18:36 Basophils # (Manual) 0.1 K/mm3 (0.0-0.1) 12/07/18 18:36 Metamyelocytes # 0.0 K/mm3 12/07/18 18:36 Myelocytes # 0.0 K/mm3 12/07/18 18:36 Promyelocytes # 0.0 K/mm3 12/07/18 18:36 Blast Cells # 0.0 K/mm3 12/07/18 18:36 WBC Morphology Not Reportable 12/07/18 18:36 Hypersegmented Neuts Not Reportable 12/07/18 18:36 Hyposegmented Neuts Not Reportable 12/07/18 18:36 Hypogranular Neuts Not Reportable 12/07/18 18:36 Smudge Cells Not Reportable 12/07/18 18:36 Toxic Granulation Not Reportable 12/07/18 18:36 Toxic Vacuolation Not Reportable 12/07/18 18:36 Dohle Bodies Not Reportable 12/07/18 18:36 Pelger-Huet Anomaly Not Reportable 12/07/18 18:36 Joe Rods Not Reportable 12/07/18 18:36 Platelet Estimate Consistent w auto 12/07/18 18:36 Clumped Platelets Not Reportable 12/07/18 18:36 Plt Clumps, EDTA Not Reportable 12/07/18 18:36 Large Platelets Not Reportable 12/07/18 18:36 Giant Platelets Few 12/07/18 18:36 Platelet Satelliting Not Reportable 12/07/18 18:36 Plt Morphology Comment Not Reportable 12/07/18 18:36 RBC Morphology Not Reportable 12/07/18 18:36 Dimorphic RBCs Not Reportable 12/07/18 18:36 Polychromasia Few 12/07/18 18:36 Hypochromasia 2+ 12/07/18 18:36 Poikilocytosis 1+ 12/07/18 18:36 Anisocytosis 1+ 12/07/18 18:36 Microcytosis 3+ 12/07/18 18:36 Macrocytosis Not Reportable 12/07/18 18:36 Spherocytes Not Reportable 12/07/18 18:36 Pappenheimer Bodies Not Reportable 12/07/18 18:36 Sickle Cells Not Reportable 12/07/18 18:36 Target Cells Not Reportable 12/07/18 18:36 Tear Drop Cells 1+ 12/07/18 18:36 Ovalocytes 1+ 12/07/18 18:36 Helmet Cells Not Reportable 12/07/18 18:36 [place] Bodies Not Reportable 12/07/18 18:36 [place] Rings Not Reportable 12/07/18 18:36 [place] Cells Not Reportable 12/07/18 18:36 Bite Cells Not Reportable 12/07/18 18:36 Crenated Cell Not Reportable 12/07/18 18:36 Elliptocytes Not Reportable 12/07/18 18:36 Acanthocytes (Spur) Not Reportable 12/07/18 18:36 Rouleaux Not Reportable 12/07/18 18:36 Hemoglobin C Crystals Not Reportable 12/07/18 18:36 Schistocytes Not Reportable 12/07/18 18:36 Malaria parasites Not Reportable 12/07/18 18:36 Louie Bodies Not Reportable 12/07/18 18:36 Hem Pathologist Commnt No 12/07/18 18:36 PT 16.4 Sec. (12.2-14.9) H 12/07/18 19:25 INR 1.24 (0.87-1.13) H 12/07/18 19:25 APTT 31.2 Sec. (24.2-36.6) 12/07/18 19:25 Sodium 140 mmol/L (137-145) 12/07/18 18:36 Potassium 3.4 mmol/L (3.6-5.0) L 12/07/18 18:36 Chloride 104.0 mmol/L (98-107) 12/07/18 18:36 Carbon Dioxide 22 mmol/L (22-30) 12/07/18 18:36 Anion Gap 17 mmol/L 12/07/18 18:36 BUN 24 mg/dL (7-17) H 12/07/18 18:36 Creatinine 1.1 mg/dL (0.7-1.2) 12/07/18 18:36 Estimated GFR 59 ml/min 12/07/18 18:36 BUN/Creatinine Ratio 22 % 12/07/18 18:36 Glucose 161 mg/dL (65-100) H 12/07/18 18:36 POC Glucose 114 (70-105) H 12/09/18 09:27 Calcium 9.4 mg/dL (8.4-10.2) 12/07/18 18:36 Magnesium 2.00 mg/dL (1.7-2.3) 12/07/18 19:25 Total Bilirubin 0.60 mg/dL (0.1-1.2) 12/07/18 18:36 AST 17 units/L (5-40) 12/07/18 18:36 ALT 14 units/L (7-56) 12/07/18 18:36 Alkaline Phosphatase 216 units/L (35-129) H 12/07/18 18:36 Total Creatine Kinase 77 units/L (30-135) 12/08/18 04:30 CK-MB (CK-2) 1.1 ng/mL (0.0-4.0) 12/08/18 04:30 CK-MB (CK-2) Rel Index 1.4 (0-4) 12/08/18 04:30 Troponin T < 0.010 ng/mL (0.00-0.029) 12/08/18 04:30 Total Protein 8.0 g/dL (6.3-8.2) 12/07/18 18:36 Albumin 4.1 g/dL (3.9-5) 12/07/18 18:36 Albumin/Globulin Ratio 1.1 % 12/07/18 18:36 TSH 1.470 mlU/mL (0.270-4.200) 12/07/18 19:25 Free T4 1.33 ng/dL (0.76-1.46) 12/07/18 19:25
[2018-12-09] MEDS: TYLENOL PO PRN (18:31)
[2018-12-10] MEDS: TYLENOL PO PRN (04:13)
[2018-12-10] MEDS: DEMADEX PO SCH (05:53)
[2018-12-10] MEDS: REVATIO PO SCH (05:53)
[2018-12-10] MEDS ORDERED: LANOXIN PO SCH (10:00)
[2018-12-10] MEDS ORDERED: ZAROXOLYN PO SCH (10:00)
--- NOTE | 2018-12-10 11:40 | Progress Note ---
Assessment and Plan Paroxysmal atrial fibrillation stable sinus rhythm on telemetry; on digoxin and metoprolol for suppression on chronic oral anticoagulation with Eliquis. Hx of COPD Chronic pulmonary hypertension Presence of pacemaker Diabetes Aortic stenosis, moderate Continue current medical management of paroxysmal afib. Stable cardiac grider for discharge home today. Subjective Date of service: 12/10/18 Interval history: Patient reports she is feeling better. Stable sinus rhythm on telemetry. Objective Vital Signs Temp Pulse Resp BP BP Pulse Ox 12/10/18 09:02 98.9 F 80 20 95/56 97 12/10/18 07:27 76 18 91/54 98 12/10/18 00:00 98.7 F 91 H 18 99/54 94 12/09/18 21:10 114 H 88/57 12/09/18 21:09 114 H 88/57 12/09/18 18:50 107 H 12/09/18 17:02 99.3 F 101 H 16 102/57 94 12/09/18 13:02 125 H 12/09/18 12:35 125 H - Physical Examination General: No Apparent Distress HEENT: Positive: PERRL Neck: Positive: neck supple Cardiac: Positive: Reg Rate and Rhythm Lungs: Positive: Decreased Breath Sounds Neuro: Positive: Grossly Intact Abdomen: Positive: Soft Extremities: Absent: edema
[2018-12-10] MEDS ORDERED: ELIQUIS PO SCH (12:00)
[2018-12-10 12:45] VITALS: BP 105/63
[2018-12-10] MEDS: PEPCID PO SCH (12:56)
[2018-12-10] MEDS: NEURONTIN PO SCH (12:56)
[2018-12-10] MEDS: ZETIA PO SCH (12:56)
[2018-12-10] MEDS: LOPRESSOR PO SCH (12:57)
[2018-12-10] MEDS: K-DUR PO SCH (12:57)
[2018-12-10] MEDS: ARICEPT PO SCH (13:01)
[2018-12-10] MEDS: HumuLIN R SUB-Q SCH (13:01)
--- NOTE | 2018-12-10 14:05 | Discharge Summary ---
Providers - Providers Date of Admission: 12/07/18 21:27 Date of discharge: 12/10/18 Attending physician: ROBERT VELARDE 12/08/18 13:01 Consult to Physician [CONS] Routine Comment: Consulting Provider: BIRGIT MCKINLEY Physician Instructions: Reason For Exam: afib with rvr Primary care physician: NARCISA GRULLON Hospitalization Condition: Stable Hospital course: Patient is a 73 yo woman with a history of hypertension, CHF, Moderate pulmonary hypertension on Sidenfil, pacemaker, DM type 2, Asthma, Arthritis, dyslipidemia, Dips snuff, GERD, COPD and p.AFib on Eliquis who admitted to ICU for AFib with RVR, now controlled off Cardizem drip -Afib with rvr, resolved: Cardiology following,on Eliquis, -Moderate pulmonary hypertension: on Sidenfil, Pulmonary is following -Hypokalemia: repeat bmp -Type 2 DM: SSI, accuchecks, ada -Aortic stenosis, moderate -DVT/GI prophy d/w Dr. Rosetta barahona to discharge on digoxin 0.125mg/d and cardizem CD 180 mg/d along with her home metoprolol 50mg bid Disposition: DC- TO HOME OR SELFCARE Time spent for discharge: 34 min Core Measure Documentation - Palliative Care Palliative Care/ Comfort Measures: Not Applicable - Core Measures Any of the following diagnoses?: none - VTE Discharge Requirements Deep Vein Thrombosis/Pulmonary Embolism Present on Admission: No Has pt received <5 days of overlap therapy or INR<2.0: No Anticoagulant overlap therapy prescribed at discharge: No Contraindication No Overlap Therapy order at DC: Not Indicated Exam - Physical Exam Narrative exam: Gen: WDWN, NAD, Awake, Alert, Orientated HEENT: NCAT, EOMI, PERRL, OP Clear Neck: supple, no adenopathy, no thyromegaly, no JVD CVS/Heart: irregular irregular normal S1S2, pulses present bilaterally Chest/Lungs: CTA B, Symmetrical chest expansion, good air entry bilaterally GI/Abdomen: soft, NTND, good bowel sounds, no guarding or rebound /Bladder: no suprapubic tenderness, no CVA or paraspinal tenderness Extermity/Skin: leg edema bilateral, no obvious rash MSK: FROM x 4 Neuro: CN 2-12 grossly intact, no new focal deficits Psych: calm - Constitutional Vitals: Temp Pulse Resp BP Pulse Ox 98.2 F 87 20 105/63 97 12/10/18 12:44 12/10/18 12:58 12/10/18 12:44 12/10/18 12:44 12/10/18 12:44 Plan Activity: other (no strenous activity) Diet: diabetic Additional Instructions: She asking for Ibuprofen 800mg, left ankle gouty pains, I told her that she could not take motrin, ibuprofen or other NSAIDs while on blood thinner. She had colchine with good results in the past. Follow up with: NARCISA GRULLON MD [Primary Care Provider] - 3-5 Days BIRGIT MCKINLEY MD [Staff Physician] - 7 Days Prescriptions: dilTIAZem CD [Cardizem Cd] 180 mg PO QDAY #30 cap Colchicine 0.6 mg PO BID PRN #10 capsule PRN Reason: Pain , Severe (7-10) Apixaban [Eliquis] 5 mg PO DAILY #30 tablet Digoxin [Lanoxin] 0.125 mg PO DAILY #30 tablet AtorvaSTATin [Lipitor] 40 mg PO DAILY #30 tablet
== END 2018-12-10 17:30 | disposition home or self-care (01) | DRG 310 ==
LOC: ED 17:27 → CC1 21:27 → 4A 12-08 20:39
PROVIDERS: ADMIT Internal Medicine; ATTEND Internal Medicine
DX: I48.0 Paroxysmal atrial fibrillation (principal); E87.6 Hypokalemia; I11.0 Hypertensive heart disease with heart failure; I50.9 Heart failure, unspecified; E11.9 Type 2 diabetes mellitus without complications; K21.9 Gastro-esophageal reflux disease without esophagitis; J44.9 Chronic obstructive pulmonary disease, unspecified; D64.9 Anemia, unspecified; I27.20 Pulmonary hypertension, unspecified; I35.0 Nonrheumatic aortic (valve) stenosis; E78.00 Pure hypercholesterolemia, unspecified; G89.29 Other chronic pain; Z90.49 Acquired absence of other specified parts of digestive tract; Z88.6 Allergy status to analgesic agent; Z88.5 Allergy status to narcotic agent; Z88.8 Allergy status to other drugs, medicaments and biological substances; Z95.0 Presence of cardiac pacemaker; Z79.01 Long term (current) use of anticoagulants; Z79.51 Long term (current) use of inhaled steroids; Z79.899 Other long term (current) drug therapy; Z79.84 Long term (current) use of oral hypoglycemic drugs
CPT/HCPCS: 36415; 71045; 80053; 82550; 82553; 82962; 83735; 84439; 84443; 84484; 85007; 85025; 85610; 85730; 93005; 93010; G0378; A9270-GY; J1160